=== PATIENT | female | born 1985 | race African-American/Black ===

== ENCOUNTER 2024-10-14 16:43 | Emergency (ER) | payer MEDICAID ==
[2024-10-13] MEDS: HYDROCODONE/ACETAMINOPHEN 5/325MG TABLET PO STA (22:15)
[~2024-10-14] VITALS: Ht 162.6 cm; Wt 100.0 kg
[2024-10-14 16:47] VITALS: O2SAT 98
[2024-10-14] MEDS ORDERED: SUMATRIPTAN SUCCINATE 25MG TABLET PO ONE (17:00)
[2024-10-14 17:57] LABS: HEMATOCRIT. 34.2 % (36.0-48.0); HEMOGLOBIN. 11.3 g/dL (12.0-16.0); MEAN CORPUSCULAR HEMOGLOBIN 30.3 pg (28.0-32.0); MEAN CORPUSCULAR HGB CONC 33.1 g/dL (31.0-37.0); MEAN CORPUSCULAR VOLUME 91.5 fL (81.0-99.0); MEAN PLATELET VOLUME 7.9 fl (7.4-10.4); PLATELET 220 x1000/uL (130-400); RED BLOOD CELL COUNT 3.73 mill/uL (4.2-5.4); RED CELL DISTRIBUTION WIDTH 13.1 % (11.6-14.6); WHITE BLOOD COUNT 13.2 x1000/uL (4.5-11.0)
[2024-10-14 17:59] LABS: DIFFERENTIAL COMMENT 1
[2024-10-14 18:03] LABS: CHLORIDE 103 mEq/L (98-107); POTASSIUM 3.2 mEq/L (3.5-5.1); SODIUM 138 mEq/L (136-145)
[2024-10-14 18:04] LABS: CALCIUM 9.6 mg/dL (8.7-10.4); CARBON DIOXIDE 27 mEq/L (21-32)
[2024-10-14 18:06] LABS: INR 1.1; PROTHROMBIN TIME 11.3 sec (9.6-11.0)
[2024-10-14 18:09] LABS: CREATININE 0.8 mg/dL (0.6-1.0); GLUCOSE 105 mg/dL (70-105); UREA NITROGEN BLOOD 7 mg/dL (9-23)
[2024-10-14 18:21] LABS: PLATELET ESTIMATE NORMAL
[2024-10-14] MEDS: SODIUM CHLORIDE 0.9% (SEPSIS BOLUS) IV ONE (21:51)
[2024-10-14] MEDS: ONDANSETRON 4MG ODT PO STA (22:00)
[2024-10-14] MEDS: POTASSIUM CHLORIDE 20MEQ TABLET SR PO NR (22:19)
[2024-10-14] MEDS: ONDANSETRON HCL 4MG/2ML INJ IV ONE (22:19)
[2024-10-14] MEDS: CEFTRIAXONE 1GM/50ML 50 ML IV ONE (22:27)
[2024-10-14] MEDS: KETOROLAC 30MG/ML VIAL IV ONE (22:40)
[2024-10-14 22:42] LABS: INR 1.2; PROTHROMBIN TIME 13.1 sec (9.6-11.0)
[2024-10-14] MEDS ORDERED: POTASSIUM CHLORIDE 20MEQ TABLET SR PO NR (23:06)
[2024-10-15 00:46] LABS: CLARITY URINE CLEAR (CLEAR); COLOR URINE YELLOW (YELLOW); GLUCOSE URINE NEGATIVE (NEGATIVE); KETONES URINE NEGATIVE (NEGATIVE); LEUKOCYTE ESTERASE URINE NEGATIVE (NEGATIVE); NITRITE URINE NEGATIVE (NEGATIVE); OCCULT BLOOD URINE 3+ (NEGATIVE); PROTEIN URINE NEGATIVE (NEGATIVE); SPECIFIC GRAVITY URINE 1.013 (1.005-1.030); UROBILINOGEN URINE 0.2 E.U./dL (0.2-1.0)
[2024-10-15] MEDS: SUMATRIPTAN SUCCINATE 25MG TABLET PO NR (01:15)
[2024-10-15 01:24] LABS: BACTERIA URINE NONE SEEN; RBC URINE 15-25 /hpf (0-2); SQUAMOUS EPITHELIAL CELL URINE FEW /lpf (RARE/1+); WBC URINE 0-2 /hpf (0-2)
[2024-10-15 01:34] LABS: INFLUENZA TYPE A Presumptive Negative (Pres. Neg.); INFLUENZA TYPE B Presumptive Negative (Pres. Neg.)
[2024-10-15 01:39] LABS: RESPIRATORY SYNCYTIAL VIRUS Not Detected (Not Detectd)
[2024-10-15 02:00] VITALS: BP 106/67; PULSE 86; RESP 20; TEMP 36.9; O2SAT 96
== END 2024-10-14 20:50 | disposition short-term general hospital (02) ==
LOC: ER 16:43
DX: J02.8 Acute pharyngitis due to other specified organisms (principal); B97.89 Other viral agents as the cause of diseases classified elsewhere; R07.9 Chest pain, unspecified; R51.9 Headache, unspecified; Z20.822 Contact with and (suspected) exposure to COVID-19
CPT/HCPCS: 99285; 96365; 70450; 96375; 71045; 96361; 87426; 80048; 81003; 87430; 83605; 85025; 85610; 87420; 87040; 87086; 87804 ×2; 36415; 84145; 93005; J1885; J0696; J2405; J7030